=== PATIENT | female | born 1955 | race Asian ===

== ENCOUNTER → 2020-05-18 | Outpatient (CLI) | payer MEDICARE ==
[~2020-05-18] MED LIST: ALEN70 PO; LORA10 PO; SOLI5 PO
== END | disposition home or self-care (01) ==
LOC: LAB SHORT 16:25 → LAB UCHC 16:25
DX: R32 Unspecified urinary incontinence (principal)
CPT/HCPCS: 87086

== ENCOUNTER 2020-10-01 08:36 | Day surgery (SDC) | payer MEDICARE ==
[~2020-10-01] VITALS: Ht 160 cm; Wt 60.5 kg
--- NOTE | 2020-10-01 09:12 | NUR ---
Ambulatory in Day Surgery History, Chart, Medications and Allergies reviewed before start of procedure.Pre-Op teaching done. Pt verbalizes understanding. Patient States Post-Procedure ride home has been arranged.
--- NOTE | 2020-10-01 09:35 | NUR ---
10/01/20 0935 Sarah Boone History, Chart, Medications and Allergies reviewed before start of procedure.PATIENT DETERMINED TO BE ASA APPROPRIATE FOR PROPOFOL SEDATION PRIOR TO START OF PROCEDURE BY .MONITOR INTACT WITH CONTINUOUS PULSE OXIMETRY AND INTERMITTENT BP.3-LEAD EKG REVIEWED WITH PHYSICIAN PRIOR TO START OF PROCEDURE.O2 VIA N/C INTACT THROUGHOUT SEDATION/PROCEDURE.
--- NOTE | 2020-10-01 10:39 | NUR ---
Patient up to Ambulate independently. Gait steady. Discharge instructions reviewed with patient. Patient verbalizes understanding. Copy given to patient to take home. Patient States Post-Procedure ride home has been arranged. Discharged via wheelchair to private car for ride home.
== END 2020-10-01 22:38 | disposition home or self-care (01) ==
LOC: ORSCMMR 08:36 → ORD 09:30 → ORSCMMR 22:38
PROVIDERS: Internal Medicine Gastroenterology
PROC: 0DJD8ZZ Inspection of Lower Intestinal Tract, Via Natural or Artificial Opening Endoscopic (ICD-10-PCS; principal; 2020-10-01 09:30)
DX: Z12.11 Encounter for screening for malignant neoplasm of colon (principal); Z86.010 Personal history of colon polyps; Z87.891 Personal history of nicotine dependence; Z79.899 Other long term (current) drug therapy
CPT/HCPCS: J2704; J7120

== ENCOUNTER 2022-10-08 22:34 | Emergency (ER) | payer MEDICARE, OTHER ==
[~2022-10-08] VITALS: Ht 162.6 cm; Wt 58.1 kg
[2022-10-08 22:37] VITALS: BP 132/60
== END 2022-10-08 22:51 | disposition home or self-care (01) ==
LOC: ER 22:34
DX: R05.9 Cough, unspecified (principal); Z79.899 Other long term (current) drug therapy
CPT/HCPCS: 99283

== ENCOUNTER 2022-12-19 10:13 | Inpatient (IN) | payer MEDICARE, OTHER ==
[~2022-12-19] VITALS: Ht 157.5 cm; Wt 63.8 kg
[2022-12-19 10:57] LABS: Hematocrit 33.5 % (33.0-51.0); Hemoglobin 11.9 g/dL (11.5-16.0); Mean Corpuscular HGB 29.8 pg (26.0-34.0); Mean Corpuscular HGB Conc 35.5 g/dL (31.5-36.5); Mean Corpuscular Volume 84 fL (80-100); Mean Platelet Volume 9.7 fL (9.1-12.4); Platelet Count 281 K/mm3 (150-400); RDW Coefficient Variation 12.9 % (11.7-14.2); RDW Standard Deviation 39.5 fL (35.1-46.3); Red Blood Cell Count 3.99 M/mm3 (3.80-5.20)
[2022-12-19 11:00] LABS: White Blood Cell Count 54.17 K/mm3 (4.00-11.30)
[2022-12-19 11:13] LABS: Albumin, Blood 1.8 g/dL (3.4-5.0); Albumin/Globulin Ratio 0.3 (0.8-1.8); Bun/Creatinine Ratio 45.5 (12.0-20.0); Creatinine, Blood 0.37 mg/dL (0.40-1.00); Globulin, Blood 5.8 g/dL (2.2-4.0); Potassium, Blood 4.2 mmol/L (3.5-5.5); Total Protein, Blood 7.6 g/dL (6.4-8.2)
[2022-12-19 12:12] LABS: BAND PERCENT MAN 4 % (0-8); BASOPHILS PERCENT MAN 0 % (0-2); EOSINOPHILS PERCENT MAN 0 % (0-6); LYMPHOCYTES ABSOLUTE MAN 1.62 K/mm3 (0.84-5.20); LYMPHOCYTES PERCENT MAN 3 % (21-46); METAMYELOCYTE ABSOLUTE MAN 1.08 K/mm3 (0.00-0.00); METAMYELOCYTE PERCENT MAN 2 % (0-0); MONOCYTES PERCENT MAN 0 % (4-13); NEUTROPHILS ABSOLUTE MAN 51.46 K/mm3 (1.96-9.15); SEG NEUTROPHILS PERCENT MAN 91 % (41-73); TOTAL CELLS COUNTED 100
[2022-12-19] MEDS ORDERED: Percocet 5-3251 EACH PO (15:03)
[2022-12-19 15:48] LABS: Bun/Creatinine Ratio 43.1 (12.0-20.0); Calcium, Blood 7.6 mg/dL (8.5-10.1); Creatinine, Blood 0.37 mg/dL (0.40-1.00); Potassium, Blood 3.9 mmol/L (3.5-5.5)
[2022-12-19] MEDS ORDERED: MYRBETRIQ50 MG PO (17:46)
[2022-12-19 18:00] VITALS: BP 120/53
--- NOTE | 2022-12-19 18:40 | NUR ---
PT AND FAMILY EDUCATED THAT SMOKING IS NOT ALLOWED IN HOSPITAL, THEY EXPRESSED UNDERSTANDING. PT ARRIVED FROM ER THIS EVENING. ZOSYN AND NS INFUSING AT THIS TIME. ALERT, ORIENTED X3, STS "TOO TIRED" TO ANSWER QUESTIONS, REFERS TO SPOUSE TO ANSWER QUESTIONS. PT REPORTS THAT INTRACTABLE VOMITING SHE WAS EXPERIENCING AT HOME NOW RESOLVED. PT ASKING "CAN'T YOU JUST JUST GIVE THE OXYCODONE AN HOUR EARLY?" SHE IS EDUCATED ABOUT OXYCODONE DOSING, PT REPORTS THAT SHE TAKES MEDICATIONS MORE FREQUENT THAN THIS AT HOME.
--- NOTE | 2022-12-19 18:47 | NUR ---
EDCUATED ON FIRE SAFETY AND NOT SMOKING IN HOSPITAL
[2022-12-19 19:21] VITALS: BP 150/75
[2022-12-19 20:23] LABS: Bun/Creatinine Ratio 39.5 (12.0-20.0); Calcium, Blood 7.9 mg/dL (8.5-10.1); Creatinine, Blood 0.41 mg/dL (0.40-1.00); Potassium, Blood 4.2 mmol/L (3.5-5.5)
--- NOTE | 2022-12-19 22:28 | NUR ---
ASSUMPTION OF CARE PT AXO. VSS. C/O PAIN, MEDS ADMINISTERED PER EMAR. REPOSITIONED. ASSISTED TO BATHROOM. FLUIDS INFUSING PER EMAR. PT RESTING POST ASSESMENT. IGNITION ASSESMENT COMPLETED, NO FINDINGS. EDUCATION PROVIDED.
[2022-12-20] VITALS (10 sets, daily range): BP systolic 76–138; BP diastolic 49–76
[2022-12-20 04:46] LABS: Hematocrit 26.2 % (33.0-51.0); Hemoglobin 9.4 g/dL (11.5-16.0); Mean Corpuscular HGB Conc 35.9 g/dL (31.5-36.5); Mean Corpuscular Volume 84 fL (80-100); Mean Platelet Volume 9.6 fL (9.1-12.4); Platelet Count 252 K/mm3 (150-400); RDW Coefficient Variation 13.2 % (11.7-14.2); RDW Standard Deviation 39.4 fL (35.1-46.3); Red Blood Cell Count 3.13 M/mm3 (3.80-5.20); White Blood Cell Count 47.49 K/mm3 (4.00-11.30)
--- NOTE | 2022-12-20 04:59 | NUR ---
SHIFT SUMMARY PT AXO, NEURO CHECKS UNCHANGED. SOME FORGETFULNESS NOTED AT TIMES. FLIDS INFUSING, TITRATED UP FOLLOWING NA LABS. PT HAS BEEN RESTING OFF AND ON THIS SHIFT WITH BREAKS TO VOID OR ASK FOR PAIN MEDS. PT HAS HAD ONE EPISODE OF EMESIS THIS SHIFT, THREW UP PHENERGAN PO TAB, IV ZOFRAN ADMINISTERED. URINE REMAINS DARK DESPITE FLUIDS, SAMPLE SENT. OTHERWISE PT USING CALL LIGHT APPROPRIATELY. VSS. BED ALARM ON.
[2022-12-20 05:00] LABS: Source, Urine Clean Catch
[2022-12-20 05:09] LABS: Albumin, Blood 1.3 g/dL (3.4-5.0); Albumin/Globulin Ratio 0.3 (0.8-1.8); Bilirubin, Direct 1.4 mg/dL (0.0-0.3); Bilirubin, Total 1.9 mg/dL (0.1-1.0); Calcium, Blood 7.1 mg/dL (8.5-10.1); Creatinine, Blood 0.44 mg/dL (0.40-1.00); Globulin, Blood 4.8 g/dL (2.2-4.0); Potassium, Blood 4.2 mmol/L (3.5-5.5); Total Protein, Blood 6.1 g/dL (6.4-8.2)
[2022-12-20 05:27] LABS: BAND PERCENT MAN 9 % (0-8); BASOPHILS PERCENT MAN 0 % (0-2); EOSINOPHILS PERCENT MAN 0 % (0-6); LYMPHOCYTES ABSOLUTE MAN 4.27 K/mm3 (0.84-5.20); LYMPHOCYTES PERCENT MAN 9 % (21-46); METAMYELOCYTE ABSOLUTE MAN 0.94 K/mm3 (0.00-0.00); METAMYELOCYTE PERCENT MAN 2 % (0-0); MONOCYTES ABSOLUTE MAN 3.32 K/mm3 (0.16-1.47); MONOCYTES PERCENT MAN 7 % (4-13); NEUTROPHILS ABSOLUTE MAN 38.94 K/mm3 (1.96-9.15); SEG NEUTROPHILS PERCENT MAN 73 % (41-73); TOTAL CELLS COUNTED 100
[2022-12-20 05:33] LABS: Bilirubin, Urine Neg (Neg); Blood, Urine 3+ (Neg); Glucose Qualitative, Urine Neg (Neg); Ketones, Urine Neg (Neg); Leukocyte Esterase, Urine 1+ (Neg); Nitrite, Urine Neg (Neg); Protein, Urine 2+ (Neg); Specific Gravity, Urine 1.015 (1.003-1.022); Urobilinogen, Urine 1+ (Normal)
[2022-12-20 05:36] LABS: Appearance, Urine Clear (Clear); Color, Urine Yellow (P-Yellow)
[2022-12-20 05:39] LABS: Bacteria Few /hpf; Squamous Epithelial Cells Few /hpf (Few); Yeast/Fungi Urine Few /hpf
--- NOTE | 2022-12-20 09:35 | NUR ---
DR HOYOS CALLED TO BEDSIDE PT AWOKE DIAPHORETIC COMPLAINING OF LOWER ABDOMINAL PAIN 3/10 THAT IS WORSE WITH PALPATION. HYPOACTIVE BOWEL TONES NOTED. PRESSURES ARE INTHE 70s. PT IS VERY DIAPHORETIC, SHE IS COVERED IN NUMEROUS BLANKETS WHICH WERE REMOVED FOR FULL ASSESSMENT. RADIAL PULSES ARE FULL AND PRESENT, WITH FAINT PEDAL PULSES. SKIN IS QUITE WARM TO TOUCH BUT ORAL TEMP READ 97.9. PT REPORTS THAT SHE HAS NOT HAD A BM IN 8 DAYS AND HAS NOT PASSED ANY GAS IN SOME TIME. PER DR HOYOS WE WILL BOLUS 500ML LACTATED RINGERS, REASSESS ABDOMEN AND ALLOW PT UNTIL NOON TO SEE IF SHE BEGINS PASSING GAS, AT WHICH POINT WE MIGHT PROCEED WITH ABDOMINAL IMAGING. LOVENOX IS HELD AT THIS TIME, PT THEN REPORTS SOME NAUSEA WHEN SHE DRINKS PROBIOTIC WAS HELD FOR NAUSEA, PT DID NOT REQUIRE MEDICATIONS FOR NAUSEA. PT REMAINS ALERT, SHE IS ANSWERING QUESTIONS. ROSEMARY IS AT BEDSIDE ESTABLISHING A POWERGLIDE AT THIS TIME.
[2022-12-20 10:06] LABS: Bun/Creatinine Ratio 39.5 (12.0-20.0); Calcium, Blood 6.5 mg/dL (8.5-10.1); Creatinine, Blood 0.51 mg/dL (0.40-1.00); Potassium, Blood 4.3 mmol/L (3.5-5.5)
--- NOTE | 2022-12-20 11:56 | NUR ---
DR HOYOS TO ROOM FOR REASSESSMENT. PLAN TO CHANGE FLUIDS TO 1/2 NS [address] ABD [address]
[2022-12-20 15:05] LABS: Bun/Creatinine Ratio 35.6 (12.0-20.0); Calcium, Blood 7.3 mg/dL (8.5-10.1); Creatinine, Blood 0.53 mg/dL (0.40-1.00); Potassium, Blood 4.3 mmol/L (3.5-5.5)
--- NOTE | 2022-12-20 18:36 | NUR ---
THIS AM PT WITH BRIEF EPISODE OF HYPOTENSION, THIS DID RESOLVE RATHER QUICKLY. PT HAS NOT REPORTED NEED FOR PAIN MEDICATION UNTIL THIS EVENING, SHE HAS BEEN RESTING WELL IN BED T/O THE DAY. PT IS ALERT, ORIENTED X3, SHE ANSWERS QUESTIONS APPROPRIATELY. PT UP TO [facility] [place], AND HAS PUREWICK IN PLACE TO 70MM SUCTION. PT REPOSITIONS SELF. HAS BEEN AT BEDSIDE FOR MOST OF THE DAY. PT HAS HAD REGULAR NS INFUSED TODAY, THEN 1/2 NS, A 500ML LR BOLUS, AND NOW FLUIDS HAVE BEEN CHANGED TO LR 100ML/HR WHICH ARE INFUSING NOW
--- NOTE | 2022-12-21 02:46 | NUR ---
SAFETY & EDUCATION NOTE PT & FAMILY EDUCATED RE: IGNITION SOURCES & RISK OF INJURY WHILE OXYGEN IS IN USE. PT DENIES SMOKING AND PT & FAMILY VERBALIZE UNDERSTANDING.
[2022-12-21 03:24] VITALS: BP 134/82
[2022-12-21 04:10] LABS: Hematocrit 25.6 % (33.0-51.0); Mean Corpuscular HGB 29.9 pg (26.0-34.0); Mean Corpuscular HGB Conc 35.2 g/dL (31.5-36.5); Mean Corpuscular Volume 85 fL (80-100); Mean Platelet Volume 9.6 fL (9.1-12.4); Platelet Count 232 K/mm3 (150-400); RDW Coefficient Variation 13.5 % (11.7-14.2); RDW Standard Deviation 41.7 fL (35.1-46.3); Red Blood Cell Count 3.01 M/mm3 (3.80-5.20); White Blood Cell Count 34.55 K/mm3 (4.00-11.30)
[2022-12-21 04:29] LABS: Albumin, Blood 1.4 g/dL (3.4-5.0); Albumin/Globulin Ratio 0.3 (0.8-1.8); Bun/Creatinine Ratio 47.5 (12.0-20.0); Calcium, Blood 7.3 mg/dL (8.5-10.1); Creatinine, Blood 0.4 mg/dL (0.40-1.00); Globulin, Blood 4.9 g/dL (2.2-4.0); Potassium, Blood 4.2 mmol/L (3.5-5.5); Total Protein, Blood 6.3 g/dL (6.4-8.2)
[2022-12-21 04:42] LABS: BAND PERCENT MAN 10 % (0-8); BASOPHILS PERCENT MAN 0 % (0-2); EOSINOPHILS PERCENT MAN 0 % (0-6); LYMPHOCYTES ABSOLUTE MAN 2.41 K/mm3 (0.84-5.20); LYMPHOCYTES PERCENT MAN 7 % (21-46); MONOCYTES ABSOLUTE MAN 1.72 K/mm3 (0.16-1.47); MONOCYTES PERCENT MAN 5 % (4-13); MYELOCYTE ABSOLUTE MAN 0.69 K/mm3 (0.00-0.00); MYELOCYTE PERCENT MAN 2 % (0-0); NEUTROPHILS ABSOLUTE MAN 29.71 K/mm3 (1.96-9.15); SEG NEUTROPHILS PERCENT MAN 76 % (41-73); TOTAL CELLS COUNTED 100
--- NOTE | 2022-12-21 06:35 | NUR ---
SHIFT SUMMARY SEE PREVIOUS NOTE. PT A&Ox4, CALLS AND COMMUNICATES NEEDS APPROPRIATELY. BP STABLE, SR-ST 90-100's, DENIES CP/PRESSURE. SpO2> 92% RA, REPORTS MILD-MOD SOB WITH REST AT TIMES. PT WITH C/O PAIN THROUGHOUT R LUNG, MEDICATED PER EMAR. CORE TEMP OF 96.6F THIS AM, SUCCESSFULLY RE-WARMED BY TURNING HEAT UP IN ROOM, APPLYING WARM BLANKETS, AND USING HEAT PAD. LR INFUSING PER EMAR. NO OTHER EVENTS, WILL REPORT TO ONCOMING RN.
--- NOTE | 2022-12-21 08:31 | NUR ---
PER DR HOYOS WILL STOP LR FOR THIS TIME AND WATCH LABS LR STOPPED
[2022-12-21 08:32] VITALS: BP 105/63
[2022-12-21 16:35] VITALS: BP 112/49
--- NOTE | 2022-12-21 18:00 | NUR ---
PT EDCUATED ON FIRE SAFETY, AGREES NOT TO SMOKE IN HOSPITAL. PT REMAINS CONFUSED, SHE SLEPT MOST OF THE DAY. VSS. PT DENIES CP OR SOB. PT REMAINS WITH PUREWICK IN PLACE. PT WAKES AND STATES THAT SHE NEEDS PAIN MEDICATION, THEN IMMEDIATELY FALLS BACK TO SLEEP, WHEN MEDICATED THIS AFTERNOON PT ASKED FOR PAIN MEDICATION AND THEN NEEDED TO BE WOKEN UP SO THAT PER PAIN MEDICATION CAN BE ADMINISTERED.
[2022-12-21 20:20] VITALS: BP 102/54
[2022-12-21 23:30] VITALS: BP 114/71
[2022-12-22] VITALS (9 sets, daily range): BP systolic 104–124; BP diastolic 45–82
--- NOTE | 2022-12-22 03:54 | NUR ---
SHIFT SUMMARY SEE PREVIOUS NOTE. PT A&Ox4, CALLS AND COMMUNICATES NEEDS APPROPRIATELY, IS HAVING EPISODES OF VISUAL & AUDITORY HALLUCINATIONS A TIMES. BP STABLE, HR 100'S, NOT ON TELE, DENIES CP/PRESSURE. SpO2> 92% RA, REPORTS MILD-MOD SOB WITH REST AT TIMES. PT WITH C/O PAIN THROUGHOUT R LUNG, MEDICATED PER EMAR. CALL TO PHYSICIAN FOR BREAK THROUGH PAIN MEDICATION, ORDERS PLACED. NO OTHER EVENTS, WILL REPORT TO ONCOMING RN.
[2022-12-22 05:49] LABS: Hematocrit 20.3 % (33.0-51.0); Hemoglobin 6.9 g/dL (11.5-16.0); Mean Corpuscular HGB 29.6 pg (26.0-34.0); Mean Corpuscular Volume 87 fL (80-100); Mean Platelet Volume 10.4 fL (9.1-12.4); NRBC ABSOLUTE 0.03 K/mm3 (0.00-0.02); NRBC Auto 0.1 /100 WBC (0.0-0.2); Platelet Count 266 K/mm3 (150-400); RDW Coefficient Variation 13.8 % (11.7-14.2); RDW Standard Deviation 42.8 fL (35.1-46.3); Red Blood Cell Count 2.33 M/mm3 (3.80-5.20); White Blood Cell Count 25.64 K/mm3 (4.00-11.30)
[2022-12-22 06:11] LABS: Albumin, Blood 1.5 g/dL (3.4-5.0); Albumin/Globulin Ratio 0.3 (0.8-1.8); Bilirubin, Total 1.3 mg/dL (0.1-1.0); Bun/Creatinine Ratio 57.9 (12.0-20.0); Calcium, Blood 7.9 mg/dL (8.5-10.1); Creatinine, Blood 0.45 mg/dL (0.40-1.00); Globulin, Blood 4.9 g/dL (2.2-4.0); Potassium, Blood 4.6 mmol/L (3.5-5.5); Total Protein, Blood 6.4 g/dL (6.4-8.2)
[2022-12-22 06:16] LABS: BAND PERCENT MAN 4 % (0-8); BASOPHILS PERCENT MAN 0 % (0-2); EOSINOPHILS PERCENT MAN 0 % (0-6); LYMPHOCYTES ABSOLUTE MAN 1.02 K/mm3 (0.84-5.20); LYMPHOCYTES PERCENT MAN 4 % (21-46); METAMYELOCYTE ABSOLUTE MAN 0.25 K/mm3 (0.00-0.00); METAMYELOCYTE PERCENT MAN 1 % (0-0); MONOCYTES ABSOLUTE MAN 1.53 K/mm3 (0.16-1.47); MONOCYTES PERCENT MAN 6 % (4-13); MYELOCYTE ABSOLUTE MAN 0.25 K/mm3 (0.00-0.00); MYELOCYTE PERCENT MAN 1 % (0-0); OTHER CELL PERCENT MAN 1 % (0-0); SEG NEUTROPHILS PERCENT MAN 83 % (41-73); TOTAL CELLS COUNTED 100
--- NOTE | 2022-12-22 06:20 | NUR ---
NOTIFIED PHYSICIAN NOTIFIED PHYSICIAN OF Hgb LEVEL, NO NEW ORDERS AT THIS TIME.
--- NOTE | 2022-12-22 12:36 | NUR ---
AMBULANCE TO PICK PT UP AT 1237. [place] TX TO [employer] [facility] PT IS A&OX3-4 BUT HAS BEEN VERY DROWSY. SHE WAS SOB THIS AM AND WAS PLACED ON 1L NC TO HELP WITH SOB. PT WAS STARTED ON ONE UNIT OF PRBC. TRANSFUSION CONTINUED ON [place] TRANSPORT. PT IS VERY WEAK AND REFUSED PT/OT. PAIN CONTROL HAS BEEN A COMPLAINT THIS SHIFT FOR THE PT. SHE WAS GIVEN HER PAIN MEDICATIONS PER EMAR AND AN ADDITIONAL DOSE OF DIULADID FOR BREAK THROUGH PAIN. THE RIGHT SIDE OF HER LUNGS ARE VERY DIMINISHED. PT NEEDED TO SIT UP ALMOST 90 DEGREES IN BED FOR COMFORT. BELINGINGS WERE SENT WITH THE PT'S . PT HAS A LITTLE BLACK [place]ORENA PACK W/ HER PHONE IN IT. PT/FAMILY WERE ASSESSED AND EDUCATED ON FIRE IGNITION RISKS AND SAFTEY. PT LEDT AT 1237
== END 2022-12-22 12:37 | disposition short-term general hospital (02) | DRG 640 ==
LOC: ER 10:13 → PCU 17:06
PROVIDERS: Emergency Medicine; Family Medicine; Student in an Organized Health Care Education/Training Program; ADMIT Hospitalist
PROC: 3E03329 Introduction of Other Anti-infective into Peripheral Vein, Percutaneous Approach (ICD-10-PCS; principal; 2022-12-19)
PROC: 30233N1 Transfusion of Nonautologous Red Blood Cells into Peripheral Vein, Percutaneous Approach (ICD-10-PCS; 2022-12-22)
DX: E87.1 Hypo-osmolality and hyponatremia (principal); A41.9 Sepsis, unspecified organism; G92.8 Other toxic encephalopathy; J18.9 Pneumonia, unspecified organism; J86.0 Pyothorax with fistula; R65.20 Severe sepsis without septic shock; E43 Unspecified severe protein-calorie malnutrition; C34.31 Malignant neoplasm of lower lobe, right bronchus or lung; J94.8 Other specified pleural conditions; E86.0 Dehydration; E86.1 Hypovolemia; M81.0 Age-related osteoporosis without current pathological fracture; D26.1 Other benign neoplasm of corpus uteri; E88.09 Other disorders of plasma-protein metabolism, not elsewhere classified; R94.31 Abnormal electrocardiogram [ECG] [EKG]; R30.0 Dysuria; R74.01 Elevation of levels of liver transaminase levels; E80.6 Other disorders of bilirubin metabolism; E87.8 Other disorders of electrolyte and fluid balance, not elsewhere classified; R74.8 Abnormal levels of other serum enzymes; K59.00 Constipation, unspecified; N32.81 Overactive bladder; Z98.51 Tubal ligation status; Z98.890 Other specified postprocedural states; Z87.891 Personal history of nicotine dependence; Z79.899 Other long term (current) drug therapy; Z68.23 Body mass index [BMI] 23.0-23.9, adult
CPT/HCPCS: 36415; 71260; 74177; 80048; 80053; 81001; 82248; 82947; 82977; 83605; 84295; 85007; 85025; 85027; 86850; 86900; 86901; 86923; 93005; 93010; 94760; 96361; 96365-59; 96366-59; 96368; 96375-59; 96376-59; 97161; 97530; 99285-25; A9270; J0744; J1170; J1650; J2405; J2543; J7030; J7120; P9016; Q9967

== ENCOUNTER 2023-02-06 03:02 | Emergency (ER) | payer MEDICARE, OTHER ==
[~2023-02-06] VITALS: Ht 157.5 cm; Wt 52.6 kg
[~2023-02-06 03:02] MED LIST changes: +MYRBETRIQ50 MG PO; +Percocet 5-3251 EACH PO
[2023-02-06 03:44] LABS: BASOPHILS ABSOLUTE AUTO 0.08 K/mm3 (0.00-0.23); BASOPHILS PERCENT AUTO 1 % (0-2); EOSINOPHILS PERCENT AUTO 2 % (0-6); Hematocrit 35.6 % (33.0-51.0); Hemoglobin 11.3 g/dL (11.5-16.0); IMMATURE GRAN PERCENT AUTO 1 % (0-1); LYMPHOCYTES ABSOLUTE AUTO 2.01 K/mm3 (0.84-5.20); LYMPHOCYTES PERCENT AUTO 24 % (21-46); MONOCYTES ABSOLUTE AUTO 0.78 K/mm3 (0.16-1.47); MONOCYTES PERCENT AUTO 9 % (4-13); Mean Corpuscular HGB 28.8 pg (26.0-34.0); Mean Corpuscular HGB Conc 31.7 g/dL (31.5-36.5); Mean Corpuscular Volume 91 fL (80-100); Mean Platelet Volume 9.1 fL (9.1-12.4); NEUTROPHILS ABSOLUTE AUTO 5.38 K/mm3 (1.96-9.15); NEUTROPHILS PERCENT AUTO 63 % (41-73); Platelet Count 519 K/mm3 (150-400); RDW Coefficient Variation 15.9 % (11.7-14.2); Red Blood Cell Count 3.92 M/mm3 (3.80-5.20); White Blood Cell Count 8.55 K/mm3 (4.00-11.30)
[2023-02-06 04:08] LABS: Albumin, Blood 2.4 g/dL (3.4-5.0); Albumin/Globulin Ratio 0.4 (0.8-1.8); Bilirubin, Total 0.2 mg/dL (0.1-1.0); Bun/Creatinine Ratio 10.3 (12.0-20.0); Calcium, Blood 8.8 mg/dL (8.5-10.1); Creatinine, Blood 0.49 mg/dL (0.40-1.00); Globulin, Blood 5.6 g/dL (2.2-4.0); Potassium, Blood 3.7 mmol/L (3.5-5.5)
[2023-02-06 07:29] VITALS: BP 150/89
== END 2023-02-06 08:22 | disposition home or self-care (01) ==
LOC: ER 03:02
PROVIDERS: Student in an Organized Health Care Education/Training Program
DX: R06.02 Shortness of breath (principal); Z90.2 Acquired absence of lung [part of]; Z79.899 Other long term (current) drug therapy; F17.200 Nicotine dependence, unspecified, uncomplicated
CPT/HCPCS: 71045; 71260; 80053; 83880; 84484; 85025; 85379; 93005; 93010; 99285-25; Q9967

== ENCOUNTER 2023-04-06 09:47 | Day surgery (SDC) | payer MEDICARE, OTHER ==
[~2023-04-06] VITALS: Ht 160 cm; Wt 48.6 kg
[2023-04-06] VITALS (8 sets, daily range): BP systolic 126–150; BP diastolic 83–101
[2023-04-06] MEDS ORDERED: PANT20 PO (10:17)
[2023-04-06] MEDS ORDERED: PROBIOTICS1 EACH PO (10:18)
--- NOTE | 2023-04-06 11:04 | NUR ---
Ambulatory in Day Surgery. History, Chart, Medications and Allergies reviewed before start of procedure. Lungs clear T/O to Auscultation. Patient confirms NPO status and agrees with scheduled surgery. Pre-Op teaching done. Pt verbalizes understanding. Patient States Post-Procedure ride home has been arranged. PT BELONGINGS PLACED UNDERNEATH GURNEY FOR SAFEKEEPING. PT OTHER BELONGINGS AND JEWELRY GIVEN TO FIANCE TO TAKE FOR SAFEKEEPING.
== END 2023-04-08 22:43 | disposition home or self-care (01) ==
LOC: ORSCMMR 09:47 → ORD 10:30 → ORSCMMR 04-08 22:43
PROVIDERS: Surgery
PROC: 0JH63WZ Insertion of Totally Implantable Vascular Access Device into Chest Subcutaneous Tissue and Fascia, Percutaneous Approach (ICD-10-PCS; principal; 2023-04-06 10:30)
DX: C34.31 Malignant neoplasm of lower lobe, right bronchus or lung (principal); F17.210 Nicotine dependence, cigarettes, uncomplicated; Z79.899 Other long term (current) drug therapy
CPT/HCPCS: 77001; C1788; J0690; J1100; J1642; J2001; J2250; J2371; J2405; J2704; J3010; J7120